=== PATIENT | male | born 1985 | race Caucasian/White ===

== ENCOUNTER → 2017-08-08 | Outpatient (CLI) | payer OTHER ==
[~2017-08-08] MED LIST: HYDR1TAB PO
--- NOTE | 2017-08-08 10:25 | Diagnostic Imaging Report ---
PROCEDURE: US Gallbladder. TECHNIQUE: Multiple Real-time grayscale images were obtained over the right upper quadrant in various projections. INDICATION: Abdominal pain. FINDINGS: The liver is mildly enlarged at 19.5 cm. No discrete liver mass is identified. The gallbladder is without stones or sludge. No wall thickening or pericholecystic fluid is seen. There is no biliary ductal dilatation. The common bile duct is 3 mm in diameter. The visualized pancreas is unremarkable. The right kidney is unremarkable. There is no ascites. IMPRESSION: Mild hepatomegaly. The study is otherwise unremarkable. Dictated by: Dictated on workstation # [id number]
== END ==
LOC: RAD 08:58
PROVIDERS: ATTEND Nurse Practitioner Family
DX: R16.0 Hepatomegaly, not elsewhere classified (principal)
CPT/HCPCS: 76705

== ENCOUNTER 2017-11-17 23:22 | Emergency (ER) | payer OTHER ==
[~2017-11-17] VITALS: Ht 190.5 cm; Wt 79.4 kg
--- OUTSIDE RECORDS SUMMARY | 2017-11-17 23:31 | XMS REPORT | CCD ---
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 Role Phone PP Unavailable CCM Unavailable Summary Purpose Interface Exchange Insurance Providers Payer name Policy type / Coverage type Covered libertarian ID Effective Begin Date Effective End Date [facility] Commercial Insurance [id number] Unknown Family history Father Diagnosis Age At Onset Alcoholism Unknown Mother Diagnosis Age At Onset Alcoholism Unknown Colon cancer Unknown Social History Social History Element Codes Description Effective Dates Marital status Unknown 06/20/2017 Number of children Unknown 2 06/20/2017 Education level Unknown College Graduate 06/20/2017 Employment Unknown Currently employed [employer] 06/20/[address]: 14237111 Current every day smoker 1/2 pack/day x10 years 06/20/[address]: 326001 Currently drinks alcohol 6 drinks/week 06/20/2017 Allergies, Adverse Reactions, Alerts Allergies, Adverse Reactions, Alerts data not found Past Medical History Illness Codes Condition Status Onset Date Resolved Date Diarrhea, unspecified ICD-9: 787.91 ICD-10: R19.7 Active 06/20/2017 Unknown Unspecified abdominal pain ICD-9: 789.00 ICD-10: R10.9 Active 06/20/2017 Unknown Problems Condition Codes Effective Dates Condition Status Diarrhea, unspecified ICD-9: 787.91 ICD-10: R19.7 06/20/2017 Active Unspecified abdominal pain ICD-9: 789.00 ICD-10: R10.9 06/20/2017 Active Medications No Medication History data Medication Administered No Medication Administered data Immunizations No Immunization data Assessments Condition Codes Effective Dates Left lower quadrant pain ICD-10: R10.32 ICD-9: 789.04 06/20/2017 Diarrhea, unspecified ICD-10: R19.7 ICD-9: 787.91 06/20/2017 Reason For Visit Reason For Visit Effective Dates Notes abdominal pain 06/20/2017 Results No Results data Review of Systems System Result Effective Dates Constitutional No recent illness 2017 Constitutional No chills 06/20/2017 Constitutional No diaphoresis 06/20/2017 Constitutional No fever 06/20/2017 Eyes No eye erythema 06/20/2017 Ears/Nose/Throat/Neck No nasal discharge 06/20/2017 Ears/Nose/Throat/Neck No nasal allergies 06/20/2017 Cardiovascular No chest pain/pressure Cardiovascular No dyspnea 06/20/2017 Respiratory No cough 06/20/2017 Respiratory No chest congestion 2017 Respiratory cigarette smoking 06/20/2017 Respiratory No dyspnea 06/20/2017 Gastrointestinal abdominal pain 2017 Gastrointestinal diarrhea 06/20/2017 Gastrointestinal No constipation 2017 Gastrointestinal No vomiting 06/20/2017 Gastrointestinal No nausea 06/20/2017 Gastrointestinal No melena 06/20/2017 Gastrointestinal No gastroesophageal reflux 06/20/2017 Genitourinary/Nephrology No dysuria 06/20 Musculoskeletal No joint complaint 2017 Dermatologic No sores 06/20/2017 Neurologic No alteration of consciousness 06/20/2017 Neurologic No mental status change 2017 Physical Exam Exam Name System Name Item Name Status Result Effective Dates Notes Full Exam - General 1994 Constitutional general appearance Overall: well developed 06/20/2017 None Full Exam - General 1994 Constitutional general appearance Overall: in no acute distress 06/20/2017 None Full Exam - General 1994 Constitutional general appearance Overall: well nourished 06/20/2017 None Full Exam - General 1994 Eyes conjunctiva /eyelids Overall: conjunctiva clear 06/20/2017 None Full Exam - General 1994 Eyes conjunctiva /eyelids Overall: cornea clear 06/20/2017 None Full Exam - General 1994 Eyes conjunctiva /eyelids Overall: eyelids normal 06/20/2017 None Full Exam - General 1994 Eyes pupils and irises Overall: pupils equal, round, reactive to light and accomodation 06/20/2017 None Full Exam - General 1994 Ears/Nose/Throat otoscopic exam Overall: external auditory canals clear 06/20/2017 None Full Exam - General 1994 Ears/Nose/Throat otoscopic exam Overall: tympanic membranes clear 06/20/2017 None Full Exam - General 1994 Ears/Nose/Throat lips/teeth/gingiva Overall: benign lips 06/20/2017 None Full Exam - General 1994 Ears/Nose/Throat oral cavity/pharynx/larynx Overall: oral mucosa clear 06/20/2017 None Full Exam - General 1994 Ears/Nose/Throat oral cavity/pharynx/larynx Overall: oropharyngeal mucosa clear 06/20/2017 None Full Exam - General 1994 Respiratory auscultation Overall: breath sounds clear bilaterally 06/20/2017 None Full Exam - General 1994 Respiratory respiratory effort/rhythm Overall: normal rate 06/20/2017 None Full Exam - General 1994 Respiratory respiratory effort/rhythm Overall: no retractions 06/20/2017 None Full Exam - General 1994 Cardiovascular auscultation of heart Overall: regular rate 06/20/2017 None Full Exam - General 1994 Cardiovascular auscultation of heart Overall: normal heart sounds 06/20/2017 None Full Exam - General 1994 Abdomen abdominal exam Overall: normal bowel sounds 06/20/2017 None Full Exam - General 1994 Abdomen abdominal exam Lower quadrant: tender to palpation 06/20/2017 None Full Exam - General 1994 Abdomen abdominal exam Lower quadrant: dull pain 06/20/2017 None Full Exam - General 1994 Abdomen abdominal exam Lower quadrant: no guarding 06/20/2017 None Full Exam - General 1994 Abdomen abdominal exam Lower quadrant: no rebound tenderness 06/20/2017 None Full Exam - General 1994 Abdomen abdominal exam Lower quadrant: soft 06/20/2017 None Full Exam - General 1994 Abdomen abdominal exam Epigastric: non-tender to palpation 06/20/2017 None Full Exam - General 1994 Abdomen abdominal exam Epigastric: no guarding 06/20/2017 None Full Exam - General 1994 Abdomen abdominal exam Epigastric: no rebound tenderness 06/20/2017 None Full Exam - General 1994 Abdomen abdominal exam Epigastric: soft 06/20/2017 None Full Exam - General 1994 Abdomen abdominal exam Upper quadrant: non-tender to palpation 06/20/2017 None Full Exam - General 1994 Abdomen abdominal exam Upper quadrant: no guarding 06/20/2017 None Full Exam - General 1994 Abdomen abdominal exam Upper quadrant: no rebound tenderness 06/20/2017 None Full Exam - General 1994 Abdomen abdominal exam Upper quadrant: soft 06/20/2017 None Full Exam - General 1994 Abdomen abdominal exam Lower quadrant: non-tender to palpation 06/20/2017 None Full Exam - General 1994 Lymphatic neck nodes Overall: anterior cervical chain benign 06/20/2017 None Full Exam - General 1994 Lymphatic neck nodes Overall: posterior cervical chain benign 06/20/2017 None Full Exam - General 1994 Musculoskeletal gait and station Overall: normal gait 06/20/2017 None Full Exam - General 1994 Musculoskeletal gait and station Overall: normal station 06/20/2017 None Full Exam - General 1994 Musculoskeletal head and neck Overall: head atraumatic 06/20/2017 None Full Exam - General 1994 Musculoskeletal spine, ribs and pelvis Overall: good posture 06/20/2017 None Full Exam - General 1994 Neurologic cranial nerves Overall: crainial nerves 2 - 12 grossly intact 06/20/2017 None Full Exam - General 1994 Psychiatric orientation/consciousness Overall: oriented to person, place and time 06/20/2017 None Full Exam - General 1994 Psychiatric mood and affect Overall: normal mood and affect 06/20/2017 None Full Exam - General 1994 Psychiatric appearance Overall: well-groomed, good eye contact 06/20/2017 None Procedures No Procedures data Vital Signs Date Vital 06/20/2017 Blood Pressure 1: 148/84 Code : 8480-6 BMI: 22.0 Code : 95039-0 Heart Rate 1 : 82 bpm Height: 6'3" SpO2: 98% Weight: 176 lbs Functional Status No Functional Status data History of Present Illness Symptom Name Status Result Effective Date Notes abdominal pain Location diffusely 06/20/2017 None abdominal pain Quality aching 06/20/2017 None abdominal pain Quality intermittent 06/20/2017 None abdominal pain Quality sharp 06/20/2017 None abdominal pain Quality squeezing 06/20/2017 None abdominal pain Quality cramping 06/20/2017 None abdominal pain Onset and Resolution ongoing 06/20/2017 None abdominal pain Onset of Symptom _ years ago 06/20/2017 None abdominal pain Onset of Symptom during adulthood 06/20/2017 None abdominal pain Limitation on Activities does not limit activities 06/20/2017 None abdominal pain Pertinent Findings bloating 06/20/2017 None abdominal pain Pertinent Findings Denies dyspepsia 06/20/2017 None abdominal pain Pertinent Findings Denies emesis 06/20/2017 None abdominal pain Pertinent Findings Denies increased appetite 06/20/2017 None abdominal pain Pertinent Findings Denies lightheadedness 06/20/2017 None abdominal pain Pertinent Findings Denies nausea 06/20/2017 None diarrhea Onset and Resolution ongoing 06/20/2017 None diarrhea Onset of Symptom _ years ago 06/20/2017 None diarrhea Quality loose 06/20/2017 None diarrhea Quality intermittent 06/20/2017 None diarrhea Pertinent Findings Denies abdominal distension 06/20/2017 None diarrhea Pertinent Findings Denies cough 06/20/2017 None diarrhea Pertinent Findings cramping 06/20/2017 None diarrhea Pertinent Findings Denies dyspepsia 06/20/2017 None diarrhea Pertinent Findings Denies fever 06/20/2017 None diarrhea Pertinent Findings heartburn 06/20/2017 None diarrhea Pertinent Findings Denies flatulence 06/20/2017 None diarrhea Pertinent Findings Denies nausea 06/20/2017 None diarrhea Pertinent Findings Denies unable to tolerate liquids orally 06/20/2017 None diarrhea Pertinent Findings bloating 06/20/2017 None diarrhea Alleviating Factors medication 06/20/2017 lactaid Advance Directives No Advance Directive data Encounters Encounter Performer Location Codes Date OFFICE VISIT, NEW - LEVEL 4 Diagnosis: Diarrhea, unspecified[ICD10: R19.7] Diagnosis: Left lower quadrant pain[ICD10: R10.32] [facility] CPT-4: 64102 06/20/2017 Plan of Care Planned Activity Notes Codes Status Date Visit Plan: Diarrhea - recommended bland diet, low fat diet , start on probiotic, and rehydrate with gatorade-like product. Pt to call if feeling worse, diarrhea becomes bloody, or does not improve with above recommendations. Pt to call for acute worsening of stomach upset or stomach pain. 06/20/2017 Patient Education: Patient Medication Summary Completed 06/20/2017 Care Plan: Comp Metabolic Pending 06/20/2017 Care Plan: Cbc With Differential Pending 06/20/2017 Care Plan: Tsh Pending 06/20/2017 Care Plan: Lipid Pending 06/20/2017 Instructions Comment Probiotic - twice a day x 3 days, then daily - Culturelle, [employer], or generic. Diarrhea - recommended bland diet, low fat diet, start on probiotic, and rehydrate with gatorade-like product. Pt to call if feeling worse, diarrhea becomes bloody, or does not improve with above recommendations. Pt to call for acute worsening of stomach upset or stomach pain.
--- OUTSIDE RECORDS SUMMARY | 2017-11-17 23:31 | XMS REPORT | CCD ---
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 Name Role Phone PP Unavailable CCM Unavailable Summary Purpose Interface Exchange Insurance Providers Payer name Policy type / Coverage type Covered green party ID Effective Begin Date Effective End Date [facility] Commercial Insurance [id number] Unknown Family history Father Diagnosis Age At Onset Alcoholism Unknown Mother Diagnosis Age At Onset Alcoholism Unknown Colon cancer Unknown Social History Social History Element Codes Description Effective Dates Marital status Unknown 06/20/2017 Number of children Unknown 2 06/20/2017 Education level Unknown College Graduate 06/20/2017 Employment Unknown Currently employed [employer] 06/20/[address]: 79306202 Current every day smoker 1/2 pack/day x10 years 06/20/[address]: 865161 Currently drinks alcohol 6 drinks/week 06/20/2017 Allergies, [...] Code : 8480-6 BMI: 22.0 Code : 84054-0 Heart Rate 1 : 82 bpm Height: [...] pain[ICD10: R10.32] [facility] CPT-4: 31165 06/20/2017 Plan of Care Planned Activity Notes [...] x 3 days, then daily - Culturelle, [employer], or generic. Diarrhea - recommended bland diet, low fat diet, start on probiotic, and rehydrate with gatorade-like product. Pt to call if feeling worse, diarrhea becomes bloody, or does not improve with above recommendations. Pt to call for acute worsening of stomach upset or stomach pain.
--- NOTE | 2017-11-18 00:52 | ED General ---
General Chief Complaint: Oral/Throat Problems Stated Complaint: FOOD WENT DOWN WIND PIPE YESTERDAY Nursing Triage Note: Pt reports he got a piece of hot pocket stuck in his throat yesterday. Nursing Sepsis Screen: No Definite Risk Source of Information: Patient Exam Limitations: No Limitations History of Present Illness Date Seen by Provider: Nov 18, 2017 Time Seen by Provider: 00:24 Initial Comments This 32-year-old gentleman presents to emergency room with complaints of upper chest and lower neck discomfort after choking on a Hot Pocket yesterday. He is concerned that it "went down the windpipe". He is not short of breath but has discomfort with breathing. He denies cough or fever. The food was not hot when he ate it. Allergies and Home Medications Allergies Coded Allergies: No Known Drug Allergies (Unverified , 11/18/17) Home Medications Hydrocodone Bit/Acetaminophen 1 Each Tablet, 1-2 EACH PO Q4HR PRN Prescribed by: KADE HUMPHREYS on 01/17/111918 Patient Home Medication List Home Medication List Reviewed: Yes Review of Systems Constitutional: no symptoms reported EENTM: see HPI Respiratory: see HPI Cardiovascular: no symptoms reported Gastrointestinal: no symptoms reported Genitourinary: no symptoms reported Musculoskeletal: no symptoms reported Skin: no symptoms reported Psychiatric/Neurological: No Symptoms Reported Hematologic/Lymphatic: No Symptoms Reported Past [id number] Hx Past Med/Social Hx: Reviewed Nursing Past Med/Soc Hx Patient Social History Alcohol Use: Occasionally Uses Alcohol Beverage of Choice: Beer Recreational Drug Use: Yes Drug of Choice: weed Smoking Status: Current Everyday Smoker Type Used: Cigarettes 2nd Hand Smoke Exposure: No Recent Foreign Travel: No Contact w/Someone Who Travel: No Recent Infectious Disease Expo: No Recent Hopitalizations: No Physical Abuse: No Sexual Abuse: No Mistreated: No Fear: No Immunizations Up To Date Tetanus Booster (TDap): Less than 5yrs Seasonal Allergies Seasonal Allergies: No Past Medical History Surgeries: Yes (Ear as an infant) Respiratory: No Cardiac: No Neurological: No Sexually Transmitted Disease: No HIV/AIDS: No Genitourinary: No Gastrointestinal: No Musculoskeletal: No Endocrine: No HEENT: No Cancer: No Psychosocial: No Nursing Suicide Risk Score: 1 Integumentary: No Blood Disorders: No Adverse Reaction/Blood Tranf: No Physical Exam Vital Signs Vital Signs - First Documented 11/17/17 23:35 Temp 98.0 Pulse 102 Resp 18 B/P (MAP) 160/95 (116) Pulse Ox 98 O2 Delivery Room Air Capillary Refill : Less Than 3 Seconds General Appearance: No Apparent Distress, WD/WN HEENT: PERRL/EOMI, Normal ENT Inspection, Pharynx Normal Neck: Normal Inspection, Non Tender, Supple Respiratory: Lungs Clear, Normal Breath Sounds, No Accessory Muscle Use, No Respiratory Distress Cardiovascular: Regular Rate, Rhythm, No Edema, No Murmur Extremity: Normal Inspection Neurologic/Psychiatric: Alert, Oriented x3, No Motor/Sensory Deficits, Normal Mood/Affect, girl friday II-XII Norm as Tested Skin: Normal Color, Warm/Dry Progress/Results/Core Measures Suspected Sepsis Recent Fever Within 48 Hours: No Infection Criteria Present: None New/Unexplained Altered Menta: No Sepsis Screen: No Definite Risk SIRS Temperature:98.0 Pulse: 102 Respiratory Rate: 18 Blood Pressure 160 /95 Mean: 116 Results/Orders My Orders Orders - JULIUS BARRON MD Chest Pa/Lat (2 View) (11/18/17 00:35) Vital Signs/I&O Capillary Refill : Less Than 3 Seconds Blood Pressure Mean: 116 Diagnostic Imaging Diagonstic Imaging: Xray Plain Films/CT/US/NM/MRI: chest Comments Chest x-ray viewed by me. report not yet available. No acute abnormalities were appreciated. Departure Impression Primary Impression: Chest discomfort Disposition: 01 HOME, SELF-CARE Condition: Stable Departure-Patient Inst. Decision time for Depature: 00:51 Referrals: MIRNA JOLLY MD (PCP/Family) Primary Care Physician Patient Instructions: Aspiration Pneumonia Add. Discharge Instructions: There was no evidence of pneumonia or aspiration on your chest x-ray. If symptoms worsen or if you develop new symptoms such as fevers over 100, productive cough, etc., then return to care for further evaluation. All discharge instructions reviewed with patient and/or family. Voiced understanding. JULIUS BARRON MD Nov 18, 2017 00:52
[2017-11-18 00:54] VITALS: BP 155/88
--- NOTE | 2017-11-18 07:35 | Diagnostic Imaging Report ---
INDICATION: Dysphagia. PA and lateral chest. FINDINGS: Heart size and pulmonary vascularity are normal. Lungs are clear. There are no effusions or pneumothoraces. IMPRESSION: Negative chest. Dictated by: Dictated on workstation # [id number]
== END 2017-11-18 00:54 | disposition home or self-care (01) ==
LOC: EDUNIT# 23:22 → ER 23:27
DX: R07.89 Other chest pain (principal); F17.210 Nicotine dependence, cigarettes, uncomplicated
CPT/HCPCS: 71046

== ENCOUNTER 2017-12-18 11:06 | Emergency (ER) | payer OTHER ==
[~2017-12-18] VITALS: Ht 190.5 cm; Wt 81.6 kg
[2017-12-18] MEDS ORDERED: HYDROcodone/APAP 7.5 MG/325 MG (LORTAB, LORCET PLUS) TABLET PO ONE (11:15)
--- NOTE | 2017-12-18 11:19 | ED Lower Extremity ---
General Chief Complaint: Lower Extremity Stated Complaint: FELL INJ FOOT Source: patient Exam Limitations: no limitations History of Present Illness Date Seen by Provider: Dec 18, 2017 Time Seen by Provider: 11:14 Initial Comments Patient is a 32-year-old male who presents to the emergency room with complaints of left foot and ankle pain. He reports falling off a wet tree branch at [place] yesterday around 1300. He states that he was climbing the tree and slipped falling about 5-6 feet landing on a rock in the river. He complains of pain and swelling. Location Injury Occurred: [place] Onset: yesterday (1300) Pain/Injury Location: left foot, left ankle Method of Injury: fell Modifying Factors: Improves With Immobilization; Worse With Movement Allergies and Home Medications Allergies Coded Allergies: No Known Drug Allergies (Unverified , 11/18/17) Home Medications Hydrocodone Bit/Acetaminophen 1 Each Tablet, 1-2 EACH PO Q4HR PRN Prescribed by: KADE HUMPHREYS on 01/17/111918 Patient Home Medication List Home Medication List Reviewed: Yes Constitutional: see HPI; No chills, No diaphoresis EENTM: see HPI, no symptoms reported Respiratory: see HPI; No cough, No dyspnea on exertion, No hemoptysis Cardiovascular: see HPI; No chest pain, No edema Gastrointestinal: see HPI; No abdominal pain, No constipation Genitourinary: see HPI; No decreased output, No discharge Musculoskeletal: see HPI, joint pain (left ankle), joint swelling (left ankle) Skin: see HPI; No change in color, No change in hair/nails; other (he does have a small 1 cm laceration to his right fifth finger. He reports this also happened yesterday while climbing.) All Other Systems Reviewed Negative Unless Noted: Yes Past Whwmolr-Tqcwjn-Hodnom Hx Past Med/Social Hx: Reviewed Nursing Past Med/Soc Hx Patient Social History Alcohol Beverage of Choice: Beer Drug of Choice: weed Type Used: Cigarettes 2nd Hand Smoke Exposure: No Recent Foreign Travel: No Contact w/Someone Who Travel: No Recent Hopitalizations: No Immunizations Up To Date Tetanus Booster (TDap): Less than 5yrs Seasonal Allergies Seasonal Allergies: No Past Medical History Surgeries: Yes (Ear as an ) Respiratory: No Cardiac: No Neurological: No Sexually Transmitted Disease: No HIV/AIDS: No Genitourinary: No Gastrointestinal: No Musculoskeletal: No Endocrine: No HEENT: No Cancer: No Psychosocial: No Integumentary: No Blood Disorders: No Adverse Reaction/Blood Tranf: No Family Medical History Reviewed Nursing Family Hx Physical Exam Vital Signs Capillary Refill : Height, Weight, BMI Height: 6'3.00" Weight: 175lbs. oz. [id number]; BMI Method:Stated General Appearance: WD/WN, no apparent distress HEENT: PERRL/EOMI, normal ENT inspection, TMs normal, pharynx normal Neck: non-tender, full range of motion, supple, normal inspection Cardiovascular: regular rate, rhythm, no edema, no gallop, no JVD, no murmur Respiratory: chest non-tender, lungs clear, normal breath sounds, no respiratory distress, no accessory muscle use Gastrointestinal: normal bowel sounds, non tender, soft, no organomegaly, no pulsatile mass Back: normal inspection, no CVA tenderness, no vertebral tenderness Hips: bilateral hip non-tender, bilateral hip normal inspection, bilateral hip normal range of motion, bilateral hip no evidence of injury Legs: bilateral leg non-tender, bilateral leg normal inspection, bilateral leg normal range of motion, bilateral leg no evidence of injury Knees: bilateral knee non-tender, bilateral knee normal inspection, bilateral knee normal range of motion, bilateral knee no evidence of injury Ankles: right ankle non-tender, right ankle normal inspection, right ankle normal range of motion, right ankle no evidence of injury; left ankle ecchymosis , left ankle limited range of motion, left ankle pain, left ankle soft tissue tenderness, left ankle swelling Feet: right foot non-tender, right foot normal inspection, right foot normal range of motion, right foot no evidence of injury; left foot ecchymosis, left foot limited range of motion, left foot pain, left foot soft tissue tenderness, left foot swelling Neurologic/Tendon: normal sensation, normal motor functions, normal tendon functions, responds to pain, no evidence tendon injury, other (the patient has limited range of motion due to swelling and pain but he does have normal sensation and adequate pulses.) Neurologic/Psychiatric: alert, normal mood/affect, oriented x 3 Skin: normal color, warm/dry, other Lymphatic: no adenopathy Progress/Results/Core Measures Results/Orders My Orders Orders - CATHIE BECK Ankle, Left, 3 Views (12/18/17 11:12) Foot, Left, 3 Views (12/18/17 11:12) Hydrocodone/Apap 7.5/325 Tab (Lortab 7. (12/18/17 11:15) Ct Extremity Lower Left Wo (12/18/17 11:45) Medications Given in ED Vital Signs/I&O Progress Progress Note : Time: 12:35 Progress Note Spoke to Dr. Wheatley at this time with the results of the patient's CT and x- rays. I discussed with him my concerns for admission and pain control. He states that he does not feel that the patient needs to be admitted and can go home with a well-padded splint, pain medication, crutches, education on elevation and ice use, and follow up with him on Tuesday of this week. 1445: The patient was placed in a posterior well-padded lower leg splint. He was given an ice pack, crutches, and strict instructions on return back to the emergency room and follow-up with Dr. Wheatley next week. A prescription for hydrocodone acetaminophen 7. 5/325 #25 was given to the patient for pain control. Departure Impression Primary Impression: Calcaneus fracture, left Disposition: 01 HOME, SELF-CARE Condition: Stable/Unchanged Departure-Patient Inst. Decision time for Depature: 13:13 Referrals: MIRNA JOLLY MD (PCP/Family) Primary Care Physician LIBAN WHEATLEY DO Patient Instructions: Foot Fracture (DC), How to Use Crutches Add. Discharge Instructions: Take medications as directed. You may also use ibuprofen in addition to the hydrocodone\\acetaminophen as directed by the bottle. Use ice at 20 minute intervals. You can refill the icepack that was provided in the emergency room if needed. Try to elevate the leg as much as possible above the level of the heart. Do not bare weight on the left foot. Use the crutches at all times. Follow-up with Dr. Wheatley at [facility] on Tuesday. Call first thing Tuesday morning for appointment time. Return back to the emergency room for increased pain, numbness, tingling, swelling, or any other concerns as needed All discharge instructions reviewed with patient and/or family. Voiced understanding. Work/School Note: Work Release Form Date Seen in the Emergency Department: Dec 18, 2017 Return to Work: Dec 22, 2017 Restrictions: No Restrictions CATHIE BECK Dec 18, 2017 11:19
--- NOTE | 2017-12-18 11:42 | Diagnostic Imaging Report ---
Indication: Jumping injury with twisting of the ankle and pain. Findings: There are fractures of the calcaneus with some flattening of Boehler's angle. CT recommended as further evaluation to evaluate the articular surfaces. No gross articular offset is apparent. The medial lateral and posterior malleolar appeared intact. Soft tissue swelling about the ankle most notable laterally in its at the dorsum of the midfoot. The plafond and talar dome appeared intact. IMPRESSION: Calcaneal fractures warrant CT as further evaluation. Swelling laterally about the ankle without appreciable disruption of the mortise Dictated by: Dictated on workstation # [id number]
--- NOTE | 2017-12-18 11:44 | Diagnostic Imaging Report ---
INDICATION: Jumping injury. FINDINGS: There is comminuted fractures of the calcaneus distally extending into the calcaneocuboid joint. Involvement of the anterior and posterior subtalar joints could not be excluded and is suspected; this could be characterized in greater detail with a CT suggested. No identifiable talar fracture, however, fractures of the calcaneus are superimposed upon the talus in multiple views limiting its visualization. The navicular, cuboid and cuneiforms grossly unremarkable. The tarsometatarsal joints and phalanges appeared intact. IMPRESSION: Comminuted likely intra-articular calcaneal fractures; CT suggested as further evaluation. No midfoot injury radiographically apparent. Dictated by: Dictated on workstation # [id number]
--- NOTE | 2017-12-18 12:30 | Diagnostic Imaging Report ---
PROCEDURE: CT left lower extremity without contrast. TECHNIQUE: Multiple contiguous axial images were obtained through the left lower extremity without the use of intravenous contrast. Sagittal and coronal reformations were then performed. INDICATION: Pain and swelling to the left foot and ankle. Patient has a calcaneus fracture noted on recent plain films. Study is performed for further evaluation. Correlation is made with radiographs of the left foot and ankle performed earlier the same day. Distal tibia and fibula are intact. The talus and navicular appear intact. The cuboid and cuneiforms are intact. There is a severely comminuted fracture of the calcaneus. The fracture involves the anterior, mid and posterior third of the calcaneus. There is intra-articular extension of fracture lines into the subtalar joints. There is also intra-articular extension of fracture lines into the calcaneocuboid joint. There is loss of Boehler's angle. No significant displacement is seen. No other fracture identified. IMPRESSION: Severely comminuted intra-articular calcaneus fracture, as described. Dictated by: Dictated on workstation # [id number]
[2017-12-18 14:25] VITALS: BP 120/80
== END 2017-12-18 14:25 | disposition home or self-care (01) ==
LOC: EDUNIT# 11:06 → ER 11:08
DX: S92.002A Unspecified fracture of left calcaneus, initial encounter for closed fracture (principal); W14.XXXA Fall from tree, initial encounter; Y93.39 Activity, other involving climbing, rappelling and jumping off
CPT/HCPCS: 29515; 73610; 73630; 73700

== ENCOUNTER 2023-04-06 18:03 | Emergency (ER) | payer OTHER ==
[2023-04-06 18:26] LABS: BASOPHILS # (AUTO) 0.1 10^3/uL (0.0-0.1); BASOPHILS % (AUTO) 1 % (0-10); EOSINOPHILS # (AUTO) 0.1 10^3/uL (0.0-0.3); EOSINOPHILS % (AUTO) 1 % (0-10); HEMATOCRIT 46 % (40-54); HEMOGLOBIN 15.4 g/dL (13.3-17.7); LYMPHOCYTES # (AUTO) 1.8 10^3/uL (1.0-4.0); LYMPHOCYTES % (AUTO) 21 % (12-44); MEAN CORPUSCULAR HEMOGLOBIN 31 pg (25-34); MEAN CORPUSCULAR HGB CONC 34 g/dL (32-36); MEAN CORPUSCULAR VOLUME 94 fL (80-99); MONOCYTES # (AUTO) 0.7 10^3/uL (0.0-1.0); MONOCYTES % (AUTO) 8 % (0-12); NEUTROPHILS # (AUTO) 6.2 10^3/uL (1.8-7.8); NEUTROPHILS % (AUTO) 70 % (42-75); PLATELET COUNT 326 10^3/uL (130-400); WHITE BLOOD COUNT 8.9 10^3/uL (4.3-11.0)
[2023-04-06] MEDS ORDERED: ANTACID SUSPENSION 30 ML UDC PO ONE (18:30)
[2023-04-06] MEDS ORDERED: LIDOCAINE 2% VISCOUS 15 ML UDC PO ONE (18:30)
[2023-04-06] MEDS ORDERED: ONDANSETRON INJECTION 4 MG/2 ML (SDV) IVP ONE (18:30)
[2023-04-06 18:31] LABS: PROTHROMBIN TIME PATIENT 13.4 SEC (12.2-14.7)
[2023-04-06 18:32] LABS: ALBUMIN 5.2 GM/DL (3.2-4.5)
--- NOTE | 2023-04-06 18:32 | ED Chest Pain ---
General Chief Complaint: Chest Pain Stated Complaint: CHEST PAIN/BACK PAIN Nursing Triage Note: PT AMB TO RM 7 PT CO OF CHEST PAIN 2/10 STARTED A FEW WEEKS AGO. Source: patient Exam Limitations: no limitations History of Present Illness Date Seen by Provider: Apr 06, 2023 Time Seen by Provider: 18:06 Initial Comments 37-year-old gentleman presents to the emergency room with complaints of a chest discomfort waxing and waning over the past few weeks. He presently rates that pain as 2/10. It started this morning when he was sitting at his desk at work and has improved throughout the day. He presents to the emergency room now at the urging of his significant other. The pain seems to improve with activity and upright position. It seems to be worse early in the day or in the morning when he is lying down. He describes some associated shortness of breath. Today he has had some lightheadedness and nausea which is new. He denies any history of cardiac problems or any prior cardiac work-up. Pain does not seem to improve or worsen with deep breathing. He is not tender to palpation over the chest or abdomen. He reports having a "digestive disorder" that has not been given a diagnosis. He describes this disorder as a daily diarrhea. He has risk factors that include smoking, drinking alcohol about 2 days/week, and daily marijuana use. He gives Dr. Kim as his primary care provider in the [facility] as his pharmacy. Allergies and Home Medications Allergies Coded Allergies: No Known Drug Allergies (Unverified , 11/18/17) Patient Home Medication List Home Medication List Reviewed: Yes Hydrocodone Bit/Acetaminophen (Vicodin 5-500 Tablet) 1 Each Tablet, 1-2 EACH PO Q4HR PRN Prescribed by: KADE HUMPHREYS on 01/17/111918 Review of Systems Review of Systems Constitutional: no symptoms reported EENTM: No Symptoms Reported Respiratory: See HPI Cardiovascular: See HPI Gastrointestinal: See HPI Genitourinary: No Symptoms Reported Musculoskeletal: no symptoms reported Skin: no symptoms reported Psychiatric/Neurological: No Symptoms Reported Endocrine: No Symptoms Reported Hematologic/Lymphatic: No Symptoms Reported Past Shnwjyb-Tossvi-Whttbn Hx Patient Social History Tobacco Use?: Yes Tobacco type used: Cigarettes Smoking Status: Current Everyday Smoker Substance use?: Yes Substance type: Marijuana (Daily) Substance frequency: Daily Alcohol Use?: Yes Alcohol type: Beer Alcohol Frequency: Couple times a week Immunizations Up To Date Tetanus Booster (TDap): Less than 5yrs Influenza Vaccine Up-to-Date: No; Not Current Seasonal Allergies Seasonal Allergies: No Past Medical History Surgery/Hospitalization HX: HEEL SURG, STOMACH ISSUES Surgeries: Yes (Ear as an infant) Ear Surgery, Orthopedic (He will) Respiratory: No Cardiac: No Neurological: No Sexually Transmitted Disease: No HIV/AIDS: No Genitourinary: No Gastrointestinal: Yes ("Digestive disorder" with daily diarrhea) Musculoskeletal: No Endocrine: No HEENT: No Cancer: No Psychosocial: No Integumentary: No Blood Disorders: No Adverse Reaction/Blood Tranf: No Physical Exam Vital Signs Vital Signs - First Documented 04/06/23 18:05 Pulse 92 Resp 27 B/P (MAP) 149/103 (118) Pulse Ox 99 Capillary Refill : Less Than 3 Seconds Height, Weight, BMI Height: 6'3.00" Weight: 180lbs. oz. [id number]; BMI Method:Stated General Appearance: No Apparent Distress, WD/WN HEENT: PERRL/EOMI, Normal ENT Inspection Neck: Normal Inspection; No JVD Respiratory: Lungs Clear, Normal Breath Sounds, No Accessory Muscle Use Cardiovascular: Regular Rate, Rhythm, No Edema, No Murmur Gastrointestinal: Non Tender, Soft; No Distended Extremity: Normal Inspection, Non Tender, No Calf Tenderness, No Pedal Edema Neurologic/Psychiatric: Alert, Oriented x3, No Motor/Sensory Deficits, Normal Mood/Affect Skin: Normal Color, Warm/Dry Progress/Results/Core Measures Results/Orders Lab Results Laboratory Tests Test 04/06/23 18:13 04/06/23 18:40 04/06/23 20:30 Range/Units White Blood Count 8.9 4.3-11.0 10^3/uL Red Blood Count 4.92 4.30-5.52 10^6/uL Hemoglobin 15.4 13.3-17.7 g/dL Hematocrit 46 40-54 % Mean Corpuscular Volume 94 80-99 fL Mean Corpuscular Hemoglobin 31 25-34 pg Mean Corpuscular Hemoglobin Concent 34 32-36 g/dL Red Cell Distribution Width 12.8 10.0-14.5 % Platelet Count 326 130-400 10^3/uL Mean Platelet Volume 9.0 9.0-12.2 fL Immature Granulocyte % (Auto) 0 % Neutrophils (%) (Auto) 70 42-75 % Lymphocytes (%) (Auto) 21 12-44 % Monocytes (%) (Auto) 8 0-12 % Eosinophils (%) (Auto) 1 0-10 % Basophils (%) (Auto) 1 0-10 % Neutrophils # (Auto) 6.2 1.8-7.8 10^3/uL Lymphocytes # (Auto) 1.8 1.0-4.0 10^3/uL Monocytes # (Auto) 0.7 0.0-1.0 10^3/uL Eosinophils # (Auto) 0.1 0.0-0.3 10^3/uL Basophils # (Auto) 0.1 0.0-0.1 10^3/uL Immature Granulocyte # (Auto) 0.0 0.0-0.1 10^3/uL Prothrombin Time 13.4 12.2-14.7 SEC INR Comment 1.0 0.8-1.4 Activated Partial Thromboplast Time 30 24-35 SEC Sodium Level 139 135-145 MMOL/L Potassium Level 3.7 3.6-5.0 MMOL/L Chloride Level 102 98-107 MMOL/L Carbon Dioxide Level 24 21-32 MMOL/L Anion Gap 13 5-14 MMOL/L Blood Urea Nitrogen 6 L 7-18 MG/DL Creatinine 0.88 0.60-1.30 MG/DL Estimat Glomerular Filtration Rate 114 BUN/Creatinine Ratio 7 Glucose Level 96 70-105 MG/DL Calcium Level 10.0 8.5-10.1 MG/DL Corrected Calcium 8.5-10.1 MG/DL Magnesium Level 1.9 1.6-2.4 MG/DL Total Bilirubin 1.2 H 0.1-1.0 MG/DL Aspartate Amino Transf (AST/SGOT) 17 5-34 U/L Alanine Aminotransferase (ALT/SGPT) 15 0-55 U/L Alkaline Phosphatase 86 40-136 U/L Myoglobin 20.5 10.0-92.0 NG/ML Troponin I < 0.028 < 0.028 <0.028 NG/ML Total Protein 8.4 H 6.4-8.2 GM/DL Albumin 5.2 H 3.2-4.5 GM/DL Lipase 11 8-78 U/L Urine Opiates Screen NEGATIVE NEGATIVE Urine Oxycodone Screen NEGATIVE NEGATIVE Urine Methadone Screen NEGATIVE NEGATIVE Urine Barbiturates Screen NEGATIVE NEGATIVE Ur Tricyclic Antidepressants Screen NEGATIVE NEGATIVE Urine Phencyclidine Screen NEGATIVE NEGATIVE Urine Amphetamines Screen NEGATIVE NEGATIVE Urine Methamphetamines Screen NEGATIVE NEGATIVE Urine Benzodiazepines Screen NEGATIVE NEGATIVE Urine Cocaine Screen NEGATIVE NEGATIVE Urine Cannabinoids Screen POSITIVE H NEGATIVE My Orders Orders - JULIUS PIERRE MD Ekg Tracing (04/06/23 18:07) Cbc And Automated Diff (04/06/23 18:18) Magnesium (04/06/23 18:18) Chest 1 View, Ap/Pa Only (04/06/23 18:18) Comprehensive Metabolic Panel (04/06/23 18:18) Myoglobin Serum (04/06/23 18:18) Protime With Inr (04/06/23 18:18) Partial Thromboplastin Time (04/06/23 18:18) O2 (04/06/23 18:18) Monitor-Rhythm Ecg Trace Only (04/06/23 18:18) Ed Iv/Invasive Line Start (04/06/23 18:18) Troponin I [place] (04/06/23 18:18) Ondansetron Injection (Ondansetron Inj (04/06/23 18:30) Lidocaine 2% Viscous 15 Ml (Xylocaine Vi (04/06/23 18:30) Antacid Suspension (Antacid Suspension (04/06/23 18:30) Drug Screen Stat (Urine) (04/06/23 18:18) Lipase (04/06/23 18:18) Aspirin Chewable Tablet (Aspirin Chewabl (04/06/23 19:30) Pantoprazole Tablet (Pantoprazole Tablet (04/06/23 19:30) Troponin I Dave (04/06/23 20:15) Medications Given in ED Current Medications Medications Dose Ordered Sig/Poonam Route Start Time Stop Time Status Last Admin Dose Admin Al Hydrox/Mg Hydrox/Simethicone 30 ml ONCE ONCE PO 04/06/23 18:30 04/06/23 18:31 DC 04/06/23 18:49 30 ML Aspirin 324 mg ONCE ONCE PO 04/06/23 19:30 04/06/23 19:31 DC 04/06/23 19:25 324 MG Lidocaine HCl 15 ml ONCE ONCE PO 04/06/23 18:30 04/06/23 18:31 DC 04/06/23 18:49 15 ML Ondansetron HCl 4 mg ONCE ONCE IVP 04/06/23 18:30 04/06/23 18:31 DC 04/06/23 18:49 4 MG Pantoprazole Sodium 40 mg ONCE ONCE PO 04/06/23 19:30 04/06/23 19:31 DC 04/06/23 19:25 40 MG Vital Signs/I&O 04/06/23 04/06/23 18:05 21:59 Pulse 92 63 Resp 27 B/P (MAP) 149/103 (118) 117/80 Pulse Ox 99 Blood Pressure Mean: 118 Progress Progress Note #1: Time: 18:40 Progress Note I accompanied patient from the waiting room to exam room and participated in the triage. Patient was interviewed and examined. EKG was promptly obtained and interpreted. Subtle ST changes were nondiagnostic. No arrhythmia was noted by my interpretation as noted below. Labs are pending. Pattern of pain seems to be more related with an upper GI etiology rather than cardiac etiology. Patient would be at risk for gastric and esophageal pathology due to smoking, marijuana use, and frequent alcohol use. A trial of GI cocktail and pretreatment with Zofran is being administered. Labs and x-ray are pending at this time. PERC rule score was zero. Progress Note #2: Time: 18:50 Progress Note Chest x-ray was viewed by me. Report not yet available. There appears to be hyperinflation. No other acute abnormalities were appreciated. Radiologist's report will be reviewed when available. Progress Note #3: Time: 19:15 Progress Note Patient received the GI cocktail without any noticeable improvement. He still rates the discomfort as 2/10 which seems to be more of a consistent background pain in his back on a daily basis. He differentiates between the background back pain and the chest pain. Chest pain is usually more noticeable in the morning when he first wakes up and dissipates throughout the day as he is active. Chest x-ray was read as unremarkable by the radiologist as noted in the report below. A 2-hour troponin will be obtained to complete the ER cardiac work-up. Protonix will be administered as I still suspect a GI etiology is responsible for some of his discomfort. Urine drug screen was positive only for marijuana. Progress Note #4: Progress Note 2-hour troponin was negative. Patient's condition remained the same with mild chest and back pain. See discharge instructions for further discussion. Initial ECG Impression Date: Apr 06, 2023 Initial ECG Impression Time: 18:09 Initial ECG Rate: 99 Initial ECG Rhythm: Normal Sinus Comment Sinus rhythm with variable rate suggestive of respiratory pattern in a young patient. No ST elevation. Very subtle ST depression noted on the automated read as nondiagnostic. Incomplete right bundle branch block noted on automated read. Otherwise, no abnormal intervals or axis deviation. Diagnostic Imaging Diagonstic Imaging: Xray Plain Films/CT/US/NM/MRI: chest Comments NAME: [facility] REC#: [id number] PT STATUS: REG ER : 1985 PHYSICIAN: JULIUS PIERRE MD ADMIT DATE: 04/06/23/ER Draft Date of Exam:04/06/23 CHEST 1 VIEW, AP/PA ONLY INDICATION: Chest pain COMPARISON: 11/18/2017 TECHNIQUE: 2 radiographs of the chest dated 04/06/2023. FINDINGS: The cardiac silhouette is within normal limits in size. No significant pulmonary vascular congestion. The lungs are clear. No pleural effusion. No pneumothorax. No acute osseous abnormality. IMPRESSION: Stable appearing examination without acute cardiopulmonary abnormality. Dictated on workstation # [id number] Dict: 04/06/23 1851 Trans: 04/06/23 190 CVB [id number] Interpreted by: DOMINICK CHATMAN MD Departure Impression Primary Impression: Atypical chest pain Additional Impression: Back pain Qualified Codes: M54.9 - Dorsalgia, unspecified Disposition: 01 HOME, SELF-CARE Condition: Stable Departure-Patient Inst. Decision time for Depature: 21:46 Referrals: MIRNA KIM MD (PCP/Family) Primary Care Physician Patient Instructions: Chest Pain Add. Discharge Instructions: Your heart and lung work-up in the emergency room was unremarkable. The exact cause of your pain is uncertain. It is possible your chest pain could be related to irritation of the stomach and/or esophagus. Dr. Pierre recommends taking an antacid medication such as Pepcid 20 mg twice daily or omeprazole 20 mg daily for the next 2 weeks. In addition, avoid the following: Eating large meals, eating close to bedtime, caffeine, carbonation, chocolate, citrus fruits and juices, tomato products, alcohol, tobacco, marijuana products, spicy foods, fatty/greasy foods, NSAID medications such as ibuprofen or naproxen, mints, and anything else you know that irritates your stomach. For pain, use Tylenol (acetaminophen) up to 1000 mg every 6 hours as needed. If this is not sufficient, you may add ibuprofen sparingly at a maximum dose of 600 mg every 6 hours. Take with food or milk to reduce stomach upset. It is important that you follow-up with your primary care provider to discuss your symptoms and a follow-up plan for further work-up. Please call tomorrow for an appointment. If pain persists, you may need further cardiac work-up such as a stress test or further GI work-up such as endoscopy (camera scoping of the stomach and/or colon). Work toward quitting smoking tobacco and marijuana as rapidly as possible. Enlist the help of your primary care provider if needed. Eliminate alcohol consumption until your chest pain resolves. Then consume alcohol only in moderation and on rare occasions Return to the emergency room if you have worsening symptoms despite following these instructions. All discharge instructions reviewed with patient and/or family. Voiced understanding. Copy Copies To 1: MIRNA KIM MD, JOSHUA T MD Apr 06, 2023 18:32
[2023-04-06 18:33] LABS: CHLORIDE 102 MMOL/L (98-107); POTASSIUM 3.7 MMOL/L (3.6-5.0); SODIUM 139 MMOL/L (135-145)
[2023-04-06 18:35] LABS: GLUCOSE 96 MG/DL (70-105); TOTAL PROTEIN 8.4 GM/DL (6.4-8.2)
[2023-04-06 18:36] LABS: CARBON DIOXIDE 24 MMOL/L (21-32)
[2023-04-06 18:37] LABS: BILIRUBIN,TOTAL 1.2 MG/DL (0.1-1.0)
[2023-04-06 18:38] LABS: ALKALINE PHOSPHATASE 86 U/L (40-136)
[2023-04-06 18:39] LABS: CREATININE SERUM 0.88 MG/DL (0.60-1.30); GFR ESTIMATED 114
[2023-04-06 18:40] LABS: BUN/CREATININE RATIO 7
[2023-04-06 18:41] LABS: ALANINE AMINOTRANSFERASE 15 U/L (0-55)
[2023-04-06 18:42] LABS: MAGNESIUM 1.9 MG/DL (1.6-2.4)
[2023-04-06 18:43] LABS: LIPASE 11 U/L (8-78)
--- NOTE | 2023-04-06 19:04 | Diagnostic Imaging Report ---
INDICATION: Chest pain COMPARISON: 11/18/2017 TECHNIQUE: 2 radiographs of the chest dated 04/06/2023. FINDINGS: The cardiac silhouette is within normal limits in size. No significant pulmonary vascular congestion. The lungs are clear. No pleural effusion. No pneumothorax. No acute osseous abnormality. IMPRESSION: Stable appearing examination without acute cardiopulmonary abnormality. Dictated by: Dictated on workstation # [id number]
[2023-04-06 19:15] LABS: AMPHETAMINE SCREEN, URINE NEGATIVE (NEGATIVE); BARBITURATE SCREEN URINE NEGATIVE (NEGATIVE); CANNABINOID SCREEN, URINE POSITIVE (NEGATIVE); COCAINE SCREEN URINE NEGATIVE (NEGATIVE); METHADONE STAT NEGATIVE (NEGATIVE); OPIATE SCREEN URINE NEGATIVE (NEGATIVE); OXYCODONE STAT NEGATIVE (NEGATIVE); TRICYCLIC ANTIDEPRESSANTS SCRE NEGATIVE (NEGATIVE)
[2023-04-06] MEDS ORDERED: ASPIRIN 81 MG CHEWABLE TABLET PO ONE (19:30)
[2023-04-06] MEDS ORDERED: PANTOPRAZOLE 40 MG TABLET PO ONE (19:30)
[2023-04-06 21:59] VITALS: BP 117/80
== END 2023-04-06 22:01 | disposition home or self-care (01) ==
LOC: EDUNIT# 18:03 → ER 18:06
DX: R07.89 Other chest pain (principal); M54.9 Dorsalgia, unspecified; I45.10 Unspecified right bundle-branch block; F17.210 Nicotine dependence, cigarettes, uncomplicated
CPT/HCPCS: 36415; 71045; 80053; 80306; 83690; 83735; 83874; 84484; 85025; 85610; 85730; 93005; 93041

== ENCOUNTER 2023-05-05 14:20 | Emergency (ER) | payer SELFPAY ==
[~2023-05-05] VITALS: Ht 190 cm; Wt 77.0 kg
--- NOTE | 2023-05-05 15:08 | ED Neurological Problem ---
General Chief Complaint: Neuro-Stroke Like Symptoms Stated Complaint: RT ARM AND FOOT TINGLING | NUMBNESS Nursing Triage Note: ARRIVED VIA AMBULATORY TO ROOM 06. ON TUE HE NOTICED WEAKNESS IN RIGHT ARM/HAND WHEN PLAYING FOOT BALL WITH HIS SON THAT CONTINUES. TUESDAY HE NOTICED TINGLING AND WEAKNESS AND BALLANCE ISSUES WITH RIGHT LEG. Source: patient Exam Limitations: no limitations (JULIUS BARRON MD) History of Present Illness Date Seen by Provider: May 05, 2023 Time Seen by Provider: 14:50 Initial Comments Sathya is a 37 year old man who presents to the ER with complaints of weakness and discoordination of the right extremities. Symptoms were first noticed on Tuesday, Apr 30 when he was throwing a football to his son. 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 Symptoms have progressed. He has a tremulous ataxia of the right hand with qnxeil-wh-ncpp and now also has some slight weakness of the RLE with ataxia on edop-hd-hphj. He denies any prior episodes. He denies any head or neck injury. He has no known cervical spine disease. (JULIUS BARRON MD) Allergies and Home Medications Allergies Coded Allergies: No Known Drug Allergies (Unverified , 11/18/17) Patient Home Medication List Home Medication List Reviewed: Yes (JULIUS BARRON MD) Hydrocodone Bit/Acetaminophen (Vicodin 5-500 Tablet) 1 Each Tablet, 1-2 EACH PO Q4HR PRN Prescribed by: KADE HUMPHREYS on 01/17/111918 Review of Systems Review of Systems Constitutional: no symptoms reported Eyes: No Symptoms Reported Ears, Nose, Mouth, Throat: no symptoms reported Respiratory: no symptoms reported Cardiovascular: no symptoms reported Gastrointestinal: no symptoms reported Genitourinary: no symptoms reported Musculoskeletal: no symptoms reported Skin: no symptoms reported Psychiatric/Neurological: See HPI Endocrine: No Symptoms Reported Hematologic/Lymphatic: No Symptoms Reported (JULIUS BARRON MD) Past Qtcmajz-Uopqvn-Ppiwpd Hx Patient Social History Tobacco Use?: Yes Substance use?: Yes Substance type: Marijuana Alcohol Use?: Yes Alcohol Frequency: Couple times a week (JULIUS BARRON MD) Immunizations Up To Date Tetanus Booster (TDap): Less than 5yrs (JULIUS BARRON MD) Seasonal Allergies Seasonal Allergies: No (JULIUS BARRON MD) Past Medical History Surgery/Hospitalization HX: HEEL SURG, STOMACH ISSUES Surgeries: Yes (Ear as an ) Ear Surgery, Orthopedic Respiratory: No Cardiac: No Neurological: No Sexually Transmitted Disease: No HIV/AIDS: No Genitourinary: No Gastrointestinal: Yes ("Digestive disorder" with daily diarrhea) Musculoskeletal: No Endocrine: No HEENT: No Cancer: No Psychosocial: No Integumentary: No Blood Disorders: No Adverse Reaction/Blood Tranf: No (JULIUS BARRON MD) Physical Exam Vital Signs Vital Signs - First Documented 05/05/23 14:40 Temp 37.2 Pulse 117 Resp 16 B/P (MAP) 136/99 (111) Pulse Ox 97 O2 Delivery Room Air ([facility]) Vital Signs Capillary Refill : Less Than 3 Seconds (JULIUS BARRON MD) Height, Weight, BMI Height: 6'3.00" Weight: 180lbs. oz. 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, alert, normal mood/affect, oriented x 3 Crainal Nerves: normal hearing, normal speech, PERRL Coordination/Gait: ABN nose to finger (R) (abnormal right goqw-ad-jrao) Motor/Sensory: no sensory deficit, other (very subtle weekness of RUE, right timber faller, and RLE) Skin: normal color, warm/dry (JULIUS BARRON MD) Stroke NIH Stroke Scale Assessment Level of Consciousness: 0=Alert (0), Level of Consciousness-Questions: 0=A nswers both month/age (0), LOC Commands: 0=Performs both tasks (0), Gaze: Normal (0), Visual Sheikh: 0=No visual loss (0), Facial Movement (Facial Paresis): 0=Normal symmetrical mnt (0), Motor Function-Arms Right: 0=No drift (0), Motor Function-Arms Left: 0=No drift (0), Motor Function-Legs Right: 0=No drift (0), Motor Function-Legs Left: 0=No drift (0), Limb Ataxia: 2=Present in two limbs (2), Sensory: 0=Normal:no loss (0), Best Language: 0=No aphasia (0), Dysarthria: 0=Normal (0), Extinction & Inattention: 0=No abnormality (0), Total: 2 Progress/Results/Core Measures Results/Orders Lab Results Laboratory Tests Test 05/05/23 15:05 Range/Units White Blood Count 8.9 4.3-11.0 10^3/uL Red Blood Count 4.45 4.30-5.52 10^6/uL Hemoglobin 13.9 13.3-17.7 g/dL Hematocrit 41 40-54 % Mean Corpuscular Volume 93 80-99 fL Mean Corpuscular Hemoglobin 31 25-34 pg Mean Corpuscular Hemoglobin Concent 34 32-36 g/dL Red Cell Distribution Width 12.6 10.0-14.5 % Platelet Count 313 130-400 10^3/uL Mean Platelet Volume 8.9 L 9.0-12.2 fL Immature Granulocyte % (Auto) 0 % Neutrophils (%) (Auto) 77 H 42-75 % Lymphocytes (%) (Auto) 14 12-44 % Monocytes (%) (Auto) 8 0-12 % Eosinophils (%) (Auto) 1 0-10 % Basophils (%) (Auto) 1 0-10 % Neutrophils # (Auto) 6.8 1.8-7.8 10^3/uL Lymphocytes # (Auto) 1.3 1.0-4.0 10^3/uL Monocytes # (Auto) 0.7 0.0-1.0 10^3/uL Eosinophils # (Auto) 0.1 0.0-0.3 10^3/uL Basophils # (Auto) 0.1 0.0-0.1 10^3/uL Immature Granulocyte # (Auto) 0.0 0.0-0.1 10^3/uL Prothrombin Time 14.5 12.2-14.7 SEC INR Comment 1.1 0.8-1.4 Activated Partial Thromboplast Time 31 24-35 SEC Sodium Level 139 135-145 MMOL/L Potassium Level 3.9 3.6-5.0 MMOL/L Chloride Level 104 98-107 MMOL/L Carbon Dioxide Level 26 21-32 MMOL/L Anion Gap 9 5-14 MMOL/L Blood Urea Nitrogen 6 L 7-18 MG/DL Creatinine 0.81 0.60-1.30 MG/DL Estimat Glomerular Filtration Rate 117 BUN/Creatinine Ratio 7 Glucose Level 117 H 70-105 MG/DL Calcium Level 9.5 8.5-10.1 MG/DL Corrected Calcium 8.5-10.1 MG/DL Magnesium Level 1.8 1.6-2.4 MG/DL Total Bilirubin 1.2 H 0.1-1.0 MG/DL Aspartate Amino Transf (AST/SGOT) 14 5-34 U/L Alanine Aminotransferase (ALT/SGPT) 14 0-55 U/L Alkaline Phosphatase 71 40-136 U/L Total Protein 7.5 6.4-8.2 GM/DL Albumin 4.6 H 3.2-4.5 GM/DL Serum Alcohol < 10 <10 MG/DL ([facility]) Vital Signs/I&O 05/05/23 05/05/23 14:40 17:47 Temp 37.2 Pulse 117 71 Resp 16 16 B/P (MAP) 136/99 (111) 124/80 Pulse Ox 97 97 O2 Delivery Room Air Room Air ([facility]) Blood Pressure Mean: 111 Progress Progress Note #1: Progress Note Patient was interviewed and examined shortly after being roomed. NIH performed by nursing staff was 1 or 2 due to ataxia. Stroke activation was not paged as symptoms had been present for several days. CT head and c-spine were reviewed by me. I found no abnormalities to explain his symptoms. Radiologist's report was also viewed. CTA angiogram of head and neck followed. Again, no abnormalities to explain his symptoms could be found according to radiologist's report as noted below. MRI was not available during his encounter (no MRI available after 14:00). MRI was felt necessary to rule out small lesion, stroke, cervical impingement, demyelinating disorder, etc. I was able to make arrangements for him to have MRI the following morning. Emergent transfer was not necessary. See discharge instructions for further discussion. The additional progress note by Dr. Portillo and the MRI reports were added the following day after the MRI outpatient study. MRI studies revealed concern for both demyelinating disease and cervical spinal stenosis. Progress Note #2: Progress Note 05/07/23 - 12:24 - [place] confirmed patient did arrive and was admitted. He is still inpatient at this time. I have requested this documentation be faxed to the care team. (JULIUS BARRON MD) Progress Note : Time: 10:39 Progress Note I spoke with the patient in the outpatient setting after his MRI was completed. Unfortunately this does show a possible demyelinating disease versus less likely subacute stroke. Given his symptoms I think this is most likely an acute demyelinating disorder. I spoke with Dr. Rodas at [facility] who would recommend admission given the patient's symptoms and MRI findings. I spoke with the patient and recommended he be evaluated and likely admitted to the hospital. After discussion the patient opted to go directly to [place] emergency department as they have neurology services required and we would have to transport the patient in an ambulance and he is worried about the cost given that he has no insurance. I did advise that we are happy to see him here if he wanted to and he declined stating he will go straight there. I did speak with Leif, charge nurse at [place] emergency department to inform the patient will be coming. He was given a disc of all imaging as well as a readout of his MRI today. (DONI PORTILLO DO) Diagnostic Imaging Diagonstic Imaging: CT Plain Films/CT/US/NM/MRI: c-spine, head Comments NAME: SATHYA ALVARADO [facility] REC#: [id number] PT STATUS: REG ER : 1985 PHYSICIAN: JULIUS BARRON MD ADMIT DATE: 05/05/23/ER Signed Date of Exam:05/05/23 CT HEAD/CERVICAL SPINE WO PROCEDURE: CT head and CT cervical spine without contrast. TECHNIQUE: Multiple contiguous axial images were obtained through the brain and cervical spine without the use of intravenous contrast. Sagittal and coronal reformations through the cervical spine were then performed. Auto Exposure Controls were utilized during the CT exam to meet ALARA standards for radiation dose reduction. INDICATION: Right arm and leg numbness and weakness for six days. No prior studies are available for comparison. CT HEAD: FINDINGS: The ventricles and sulci are within normal limits. No sulcal effacement or midline shift is identified. No acute intra-axial or extra-axial hemorrhage is detected. Cisterns are patent. Visualized paranasal sinuses are clear. IMPRESSION: No acute intracranial process is detected. CT CERVICAL SPINE: FINDINGS: Alignment is normal. There is degenerative disc disease at the C6-C7 level with disc space narrowing and marginal spurring. No fractures are identified. Prevertebral tissues are within normal limits. Odontoid is intact. IMPRESSION: Lower cervical spondylosis. No acute bony abnormality is detected. Dictated by: Dictated on workstation # [id number] Dict: 05/05/23 1533 Trans: 05/05/23 1639 [id number] Interpreted by: GULSHAN GUEVARA MD Electronically signed by: GULSHAN GUEVARA MD 05/05/23 1639 Diagonstic Imaging: CT Plain Films/CT/US/NM/MRI: other (angio head and neck) Comments NAME: SATHYA ALVARADO [facility] REC#: [id number] PT STATUS: REG ER : 1985 PHYSICIAN: JULIUS BARRON MD ADMIT DATE: 05/05/23/ER Signed Date of Exam:05/05/23 CT ANGIO HEAD/NECK PROCEDURE: CT angiography of the head and CT angiography of the neck with and without contrast. TECHNIQUE: Contiguous noncontrast images were obtained from the skull base through the vertex. After intravenous contrast administration, helical CT angiography of the neck was performed. Source data was reformatted into 3D MIP projections. Delayed post contrast acquisition was also obtained. Auto Exposure Controls were utilized during the CT exam to meet ALARA standards for radiation dose reduction. INDICATION: Right-sided weakness and ataxia. FINDINGS: The carotid arteries are normal without stenosis. Vertebral arteries are normal without stenosis. Intracranial internal carotid arteries are normal. The middle cerebral arteries are normal. The posterior cerebral arteries are normal. The anterior cerebral arteries are normal. There is no large vessel occlusion. No aneurysm or vascular malformation is seen. The smith-white matter differentiation is normal. No mass effect or midline shift. The ventricles are normal in size and configuration. Basilar cisterns are patent. There are no intra- or extra-axial fluid collections. There is no intracranial hemorrhage. The orbits are normal. Paranasal sinuses are normal. Mastoid air cells are clear. No soft tissue abnormality is seen. No osseus lesions or fractures are seen. No lymphadenopathy is seen in the neck. The muscles of the neck are normal. Fascial planes are preserved and the deep spaces of the neck are normal. Limited views of the superior thorax are unremarkable. No osseous lesions or fractures are seen. IMPRESSION: 1. Normal vasculature in the head and neck without large vessel occlusion. Dictated by: Dictated on workstation # [id number] Dict: 05/05/23 1636 Trans: 05/05/23 1639 [facility] [id number] Interpreted by: RUFINA POSADA DO Electronically signed by: RUFINA POSADA DO 05/05/23 1639 Diagonstic Imaging: MRI Plain Films/CT/US/NM/MRI: c-spine Comments NAME: SATHYA ALVARADO [facility] REC#: [id number] PT STATUS: REG CLI : 1985 PHYSICIAN: JULIUS BARRON MD ADMIT DATE: 05/06/23/RAD Signed Date of Exam:05/06/23 MRI CERVICAL SPINE W/O CONTRAS CLINICAL INDICATION: Patient with right-sided weakness. EXAM: MRI of the cervical spine performed without IV contrast. Sequences include sagittal T2, sagittal T1, sagittal T2 fat-sat, and axial T2. COMPARISON: CT angiogram of the head/neck dated 05/05/2023. FINDINGS: There is no acute cervical spine fracture or dislocation. There are Modic type I and type III degenerative signal changes involving the C6-C7 endplates. There are mildly hypertrophic spurs involving the C6-C7 level anteriorly. The visualized posterior fossa is unremarkable. The cervical spinal cord has normal cord caliber with no abnormal signal. There is no significant paraspinal soft tissue abnormality. Motion artifact slightly obscures the axial T2 sequence. C1-C2: Unremarkable. C2-C3: Unremarkable. C3-C4: Unremarkable. C4-C5: There is a small annular tear posteriorly. There is no significant central canal or neuroforaminal narrowing. C5-C6: Unremarkable. C6-C7: There is a diffuse disk bulge and moderate to severe loss of disk space height and bilateral uncinate spurs. There is moderate central canal stenosis and severe bilateral neuroforaminal narrowing. C7-T1: There is mild bilateral facet arthropathy. Otherwise, this level is unremarkable. IMPRESSION: 1: Cervical spinal cord is unremarkable with no abnormal cord signal. 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 3: There is a C6-C7 diffuse disk bulge with uncinate spurs with associated moderate central canal stenosis and severe bilateral neuroforaminal narrowing. Dictated by: Dictated on workstation # [id number] Dict: 05/06/23 1001 Trans: 05/06/231701 [facility] [id number] Interpreted by: GERALDINE GARCIA MD Electronically signed by: GERALDINE GARCIA MD 05/06/231701 Diagonstic Imaging: MRI Plain Films/CT/US/NM/MRI: head Comments NAME: SATHYA ALVARADO [facility] REC#: [id number] PT STATUS: REG CLI : 1985 PHYSICIAN: JULIUS BARRON MD ADMIT DATE: 05/06/23/RAD Signed Date of Exam:05/06/23 MRI BRAIN W/WO CONTRAST Clinical Indication: Patient with right arm and leg weakness. Patient has coordination issues and weakness exam. Exam: MRI of the brain performed without and with 15 cc of Clariscan IV contrast. Sequences include axial DWI, ADC map, coronal gradient echo, axial T2, axial FLAIR, axial T1, axial T1 post IV contrast, coronal T1 fat-sat post IV contrast, and sagittal T1 post IV contrast. Comparison: CT angiogram of the head/neck dated 05/05/2023.. Findings: There is an 11 mm x 15 mm ovoid area of increased T2 signal involving the posterior left frontal periventricular region. There is increased vascularity as subtle blush-like enhancement seen in the region. There is predominantly T2 shine through associated with this area with possible diffusion restriction anteriorly versus artifactual. There is no low gradient echo signal seen in the region. There are no other areas of abnormal signal involving the brain parenchyma. There are no other areas of abnormal IV contrast enhancement seen on this exam. The brain parenchymal volume appears appropriate for patient's age. There is normal smith-white matter distinction. There is no hydrocephalus. Basal cisterns are unremarkable. The visualized [place] of Her vascular structures are unremarkable. There is a partially visualized area of mucosal thickening involving the right maxillary sinus. There is minimal mucosal thickening involving ethmoid sinus. Mastoid air cells are clear. IMPRESSION: 1: There is a small ovoid area of increased T2 signal involving the posterior left frontal periventricular region with predominantly T2 shine through. There is subtle blush of enhancement and increased vascularity in the region. An active demyelinating process may be a consideration. Subacute infarct may be less likely. Followup MRI of the brain in 3 months is suggested to evaluate for interval change. 2: The remainder of the brain parenchyma is unremarkable. Dictated by: Dictated on workstation # [id number] Dict: 05/06/23 0952 Trans: 05/06/231702 [facility] [id number] Interpreted by: GERALDINE GARCIA MD Electronically signed by: GERALDINE GARCIA MD 05/06/235 (JULIUS BARRON MD) Departure Impression Primary Impression: Right sided weakness Additional Impression: Ataxia in two extremities Disposition: 01 HOME, SELF-CARE Condition: Stable Departure-Patient Inst. Decision time for Depature: 17:27 (JULIUS BARRON MD) Referrals: MIRNA KIM MD (PCP/Family) Primary Care Physician Patient Instructions: MRI Scan Add. Discharge Instructions: Return to the hospital and check-in at the registration desk at 7:30 tomorrow morning. Bring your order form with you for the MRI. Please stay at the hospital until the MRI report can be directed to the ER physician and you can be given instructions. Please schedule follow-up appointment with Dr. Kim as soon as possible. Return to the emergency room if you have worsening symptoms despite following these instructions. All discharge instructions reviewed with patient and/or family. Voiced understanding. Copy Copies To 1: MIRNA KIM MD, JOSHUA T MD May 05, 2023 15:08 DONI PORTILLO DO May 06, 2023 11:59
[2023-05-05 15:22] LABS: ALBUMIN 4.6 GM/DL (3.2-4.5); CHLORIDE 104 MMOL/L (98-107); POTASSIUM 3.9 MMOL/L (3.6-5.0); SODIUM 139 MMOL/L (135-145)
[2023-05-05 15:23] LABS: CALCIUM 9.5 MG/DL (8.5-10.1)
[2023-05-05 15:24] LABS: BASOPHILS # (AUTO) 0.1 10^3/uL (0.0-0.1); BASOPHILS % (AUTO) 1 % (0-10); EOSINOPHILS # (AUTO) 0.1 10^3/uL (0.0-0.3); EOSINOPHILS % (AUTO) 1 % (0-10); GLUCOSE 117 MG/DL (70-105); HEMATOCRIT 41 % (40-54); HEMOGLOBIN 13.9 g/dL (13.3-17.7); LYMPHOCYTES # (AUTO) 1.3 10^3/uL (1.0-4.0); LYMPHOCYTES % (AUTO) 14 % (12-44); MEAN CORPUSCULAR HEMOGLOBIN 31 pg (25-34); MEAN CORPUSCULAR HGB CONC 34 g/dL (32-36); MEAN CORPUSCULAR VOLUME 93 fL (80-99); MEAN PLATELET VOLUME 8.9 fL (9.0-12.2); MONOCYTES # (AUTO) 0.7 10^3/uL (0.0-1.0); MONOCYTES % (AUTO) 8 % (0-12); NEUTROPHILS # (AUTO) 6.8 10^3/uL (1.8-7.8); NEUTROPHILS % (AUTO) 77 % (42-75); PLATELET COUNT 313 10^3/uL (130-400); TOTAL PROTEIN 7.5 GM/DL (6.4-8.2); WHITE BLOOD COUNT 8.9 10^3/uL (4.3-11.0)
[2023-05-05 15:25] LABS: CARBON DIOXIDE 26 MMOL/L (21-32)
[2023-05-05 15:26] LABS: BILIRUBIN,TOTAL 1.2 MG/DL (0.1-1.0)
[2023-05-05 15:28] LABS: ALKALINE PHOSPHATASE 71 U/L (40-136); CREATININE SERUM 0.81 MG/DL (0.60-1.30); GFR ESTIMATED 117
[2023-05-05 15:29] LABS: BUN/CREATININE RATIO 7; INR 1.1 (0.8-1.4); PROTHROMBIN TIME PATIENT 14.5 SEC (12.2-14.7)
[2023-05-05 15:31] LABS: ALANINE AMINOTRANSFERASE 14 U/L (0-55); MAGNESIUM 1.8 MG/DL (1.6-2.4)
--- NOTE | 2023-05-05 15:39 | Diagnostic Imaging Report ---
PROCEDURE: CT head and CT cervical spine without contrast. TECHNIQUE: Multiple contiguous axial images were obtained through the brain and cervical spine without the use of intravenous contrast. Sagittal and coronal reformations through the cervical spine were then performed. Auto Exposure Controls were utilized during the CT exam to meet ALARA standards for radiation dose reduction. INDICATION: Right arm and leg numbness and weakness for six days. No prior studies are available for comparison. CT HEAD: FINDINGS: The ventricles and sulci are within normal limits. No sulcal effacement or midline shift is identified. No acute intra-axial or extra-axial hemorrhage is detected. Cisterns are patent. Visualized paranasal sinuses are clear. IMPRESSION: No acute intracranial process is detected. CT CERVICAL SPINE: FINDINGS: Alignment is normal. There is degenerative disc disease at the C6-C7 level with disc space narrowing and marginal spurring. No fractures are identified. Prevertebral tissues are within normal limits. Odontoid is intact. IMPRESSION: Lower cervical spondylosis. No acute bony abnormality is detected. Dictated by: Dictated on workstation # [id number]
[2023-05-05] MEDS ORDERED: IOHEXOL 350 MG/ML 100 ML (OMNIPAQUE 350) VIAL IV ONE (16:15)
[2023-05-05] MEDS ORDERED: NS 100 ML (IVPB) BAG IV ONE (16:15)
[2023-05-05] MEDS ORDERED: HOLD METFORMIN - RECEIVED CONTRAST 20 ML VIAL IV SCH (16:15)
--- NOTE | 2023-05-05 16:40 | Diagnostic Imaging Report ---
PROCEDURE: CT angiography of the head and CT angiography of the neck with and without contrast. TECHNIQUE: Contiguous noncontrast images were obtained from the skull base through the vertex. After intravenous contrast administration, helical CT angiography of the neck was performed. Source data was reformatted into 3D MIP projections. Delayed post contrast acquisition was also obtained. Auto Exposure Controls were utilized during the CT exam to meet ALARA standards for radiation dose reduction. INDICATION: Right-sided weakness and ataxia. FINDINGS: The carotid arteries are normal without stenosis. Vertebral arteries are normal without stenosis. Intracranial internal carotid arteries are normal. The middle cerebral arteries are normal. The posterior cerebral arteries are normal. The anterior cerebral arteries are normal. There is no large vessel occlusion. No aneurysm or vascular malformation is seen. The smith-white matter differentiation is normal. No mass effect or midline shift. The ventricles are normal in size and configuration. Basilar cisterns are patent. There are no intra- or extra-axial fluid collections. There is no intracranial hemorrhage. The orbits are normal. Paranasal sinuses are normal. Mastoid air cells are clear. No soft tissue abnormality is seen. No osseus lesions or fractures are seen. No lymphadenopathy is seen in the neck. The muscles of the neck are normal. Fascial planes are preserved and the deep spaces of the neck are normal. Limited views of the superior thorax are unremarkable. No osseous lesions or fractures are seen. IMPRESSION: 1. Normal vasculature in the head and neck without large vessel occlusion. Dictated by: Dictated on workstation # [id number]
[2023-05-05 17:47] VITALS: BP 124/80
== END 2023-05-05 17:47 | disposition home or self-care (01) ==
LOC: EDUNIT# 14:20 → ER 14:23
DX: R53.1 Weakness (principal); R27.0 Ataxia, unspecified; R20.0 Anesthesia of skin
CPT/HCPCS: 70450; 70496; 70498; 72125; 80053; 83735; 85025; 85610; 85730; 93005; 99284; G0480; 36415; 80320

== ENCOUNTER → 2023-05-06 | Outpatient (CLI) | payer SELFPAY ==
[~2023-05-06] MED LIST changes: +GADOTERATE 0.5 MMOL/ML (CLARISCAN) 15 ML VIAL IV ONE
--- NOTE | 2023-05-06 10:08 | Diagnostic Imaging Report ---
Clinical Indication: Patient with right arm and leg weakness. Patient has coordination issues and weakness exam. Exam: MRI of the brain performed without and with 15 cc of Clariscan IV contrast. Sequences include axial DWI, ADC map, coronal gradient echo, axial T2, axial FLAIR, axial T1, axial T1 post IV contrast, coronal T1 fat-sat post IV contrast, and sagittal T1 post IV contrast. Comparison: CT angiogram of the head/neck dated 05/05/2023.. Findings: There is an 11 mm x 15 mm ovoid area of increased T2 signal involving the posterior left frontal periventricular region. There is increased vascularity as subtle blush-like enhancement seen in the region. There is predominantly T2 shine through associated with this area with possible diffusion restriction anteriorly versus artifactual. There is no low gradient echo signal seen in the region. There are no other areas of abnormal signal involving the brain parenchyma. There are no other areas of abnormal IV contrast enhancement seen on this exam. The brain parenchymal volume appears appropriate for patient's age. There is normal smith-white matter distinction. There is no hydrocephalus. Basal cisterns are unremarkable. The visualized [place] of Her vascular structures are unremarkable. There is a partially visualized area of mucosal thickening involving the right maxillary sinus. There is minimal mucosal thickening involving ethmoid sinus. Mastoid air cells are clear. IMPRESSION: 1: There is a small ovoid area of increased T2 signal involving the posterior left frontal periventricular region with predominantly T2 shine through. There is subtle blush of enhancement and increased vascularity in the region. An active demyelinating process may be a consideration. Subacute infarct may be less likely. Followup MRI of the brain in 3 months is suggested to evaluate for interval change. 2: The remainder of the brain parenchyma is unremarkable. Dictated by: Dictated on workstation # [id number]
--- NOTE | 2023-05-06 10:17 | Diagnostic Imaging Report ---
CLINICAL INDICATION: Patient with right-sided weakness. EXAM: MRI of the cervical spine performed without IV contrast. Sequences include sagittal T2, sagittal T1, sagittal T2 fat-sat, and axial T2. COMPARISON: CT angiogram of the head/neck dated 05/05/2023. FINDINGS: There is no acute cervical spine fracture or dislocation. There are Modic type I and type III degenerative signal changes involving the C6-C7 endplates. There are mildly hypertrophic spurs involving the C6-C7 level anteriorly. The visualized posterior fossa is unremarkable. The cervical spinal cord has normal cord caliber with no abnormal signal. There is no significant paraspinal soft tissue abnormality. Motion artifact slightly obscures the axial T2 sequence. C1-C2: Unremarkable. C2-C3: Unremarkable. C3-C4: Unremarkable. C4-C5: There is a small annular tear posteriorly. There is no significant central canal or neuroforaminal narrowing. C5-C6: Unremarkable. C6-C7: There is a diffuse disk bulge and moderate to severe loss of disk space height and bilateral uncinate spurs. There is moderate central canal stenosis and severe bilateral neuroforaminal narrowing. C7-T1: There is mild bilateral facet arthropathy. Otherwise, this level is unremarkable. IMPRESSION: 1: Cervical spinal cord is unremarkable with no abnormal cord signal. 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 3: There is a C6-C7 diffuse disk bulge with uncinate spurs with associated moderate central canal stenosis and severe bilateral neuroforaminal narrowing. Dictated by: Dictated on workstation # [id number]
== END ==
LOC: RAD 07:44
PROVIDERS: ATTEND Family Medicine
DX: M50.323 Other cervical disc degeneration at C6-C7 level (principal); M48.02 Spinal stenosis, cervical region; R53.1 Weakness; R27.0 Ataxia, unspecified
CPT/HCPCS: 70553; 72141